=== PATIENT | male | born 1965 | race Caucasian/White ===

== ENCOUNTER 2024-11-03 13:30 | Emergency (ER) | payer OTHER ==
[2024-11-03] MEDS: MORPHINE SULFATE 2 MG/ML INJ (NOT FOR IM USE) IV ONE (14:32)
[2024-11-03] MEDS: HYDROCODONE/ACETAMINOPHEN 10/325MG TABLET PO ONE (16:24)
[2024-11-03 16:37] VITALS: BP 142/98; PULSE 82; RESP 17; O2SAT 95
[2024-11-03] MEDS ORDERED: T3 PO (17:04)
== END 2024-11-03 17:29 | disposition home or self-care (01) ==
LOC: ER 13:30
DX: S52.121A Displaced fracture of head of right radius, initial encounter for closed fracture (principal); W19.XXXA Unspecified fall, initial encounter; Y93.89 Activity, other specified; Y92.89 Other specified places as the place of occurrence of the external cause; Y99.0 Civilian activity done for income or pay
CPT/HCPCS: 73060; 73070; 73090; 29105; 96374; 99284; J2270; Z7610 ×2; A6449; A4565; A4606